=== PATIENT | female | born 1995 | race Caucasian/White ===

== ENCOUNTER 2019-07-03 11:41 | Emergency (ER) | payer OTHER ==
--- NOTE | 2019-07-03 12:07 | UC ---
FLU HPI - HPI Summary HPI Summary: 24 yo female presents with flu-like symptoms. She tells me that for the last 4 days she has had fatigue, body aches, intermittent feeling feverish, sore throat , and dry cough. For the last 2 days she has had bladder pressure, burning with urination, and urinary frequency. She has been taking tylenol for her flu symptoms with good relief. Has been taking AZO for her urinary symptoms with good relief. She did not get a flu shot this year. LMP was 06/21/19. Denies SOB, chest pain, abdominal pain, n/v/d/c, flank or back pain. Denies any PMHx. - History of Current Complaint Stated Complaint: SORE THROAT FEVER BODYACHES URINARY ISSUE Time Seen by Provider: 07/03/19 12:07 Hx Obtained From: Patient Severity Currently: Mild Severity Initially: Mild Pain Intensity: 3 Pain Scale Used: 0-10 Numeric - Allergy/Home Medications Allergies/Adverse Reactions: Allergies Allergy/AdvReac Type Severity Reaction Status Date / Time No Known Allergies Allergy Verified 07/03/19 12:09 Home Medications: Home Medications Ethinyl Estradiol/Drospirenone [[place] 28 Tablet (Nf)] 1 tab PO DAILY 07/03/19 [ History Confirmed 07/03/19] Nitrofurantoin Monohyd/M-Cryst [Macrobid 100 mg Capsule] 100 mg PO BID #10 cap 07/03/19 [Rx] PMH/Surg Hx/FS Hx/Imm Hx - Additional Past Medical History Additional PMH: None - Surgical History Surgical History: Yes Surgery Procedure, Year, and Place: parathyroid 2016 - Family History Known Family History: Positive: None - Social History Occupation: Student Lives: Dormitory/Roommates Alcohol Use: Occasionally Substance Use Type: None Smoking Status (MU): Never Smoked Tobacco Review of Systems All Other Systems Reviewed And Are Negative: No Constitutional: Positive: Chills, Fatigue, Other - Body aches Skin: Positive: Negative Eyes: Positive: Negative ENT: Positive: Sore Throat, Nasal Discharge Respiratory: Positive: Cough Cardiovascular: Positive: Negative Gastrointestinal: Positive: Negative Genitourinary: Positive: Dysuria Neurovascular: Positive: Negative Musculoskeletal: Positive: Negative Neurological/Mental Status: Positive: Negative Psychological: Positive: Negative Physical Exam - Summary Physical Exam Summary: GENERAL: NAD. WDWN. No pain distress. SKIN: No rashes, sores, or open wounds. HEENT: Head: AT/NC Eyes: PERRLA. EOM intact. Conjunctiva clear without inflammation or discharge. Ears: Hearing grossly normal. TMs intact, no bulging, erythema, or edema. Nose: Nasal mucosa pink and moist. NTTP maxillary and frontal sinus. Throat: Posterior oropharynx without exudates, erythema, or tonsillar enlargement. Uvula midline. NECK: Supple. Nontender. No lymphadenopathy. CHEST: CTAB. No r/r/w. No accessory muscle use. Breathing comfortably and in no distress. CV: RRR. Pulses intact. Brisk cap refill. ABDOMEN: Soft. NTTP. No distention or guarding. No CVA tenderness. Bowel sounds present NEURO: Alert. PSYCH: Age appropriate behavior. Triage Information Reviewed: Yes Vital Signs: Vital Signs: Temp Pulse Resp BP Pulse Ox 97.8 F 80 18 99/58 99 07/03/19 12:05 07/03/19 12:05 07/03/19 12:05 07/03/19 12:05 07/03/19 12:05 Laboratory Tests 07/03/19 07/03/19 07/03/19 12:20 12:22 12:25 POC Urine Color Yellow POC Urine Clarity Clear POC Urine pH 8.5 POC Ur Specif [place] 1.015 POC Urine Protein 1+ A POC Ur Glucose (UA) Trace A POC Urine Ketones Negative POC Urine Blood Trace-intact A POC Urine Nitrite Negative POC Urine Bilirubin Negative POC Urine Urobilinogen 1.0 POC U Leukocyte Esteras Trace A POC Ur Test Influenza A (Rapid) Negative Influenza B (Rapid) Negative Group A Strep Rapid Negative 07/03/19 12:27 POC Urine Color POC Urine Clarity POC Urine pH POC Ur Specif [place] POC Urine Protein POC Ur Glucose (UA) POC Urine Ketones POC Urine Blood POC Urine Nitrite POC Urine Bilirubin POC Urine Urobilinogen POC U Leukocyte Esteras POC Ur Test Negative Influenza A (Rapid) Influenza B (Rapid) Group A Strep Rapid Vital Signs Reviewed: Yes Flu Course/Dx - Course Course Of Treatment: UA as above - discussed with pt and she denies personal or fam hx of diabetes. Given trace glucose a fingerstick was checked as was 118 - she last ate about 2 hours ago (oatmeal). POC strep and flu negative. Suspect viral illness. Will treat her with macrobid for her UTI and have her continue her supportive OTC care for her flu-like symptoms. Recommend recheck in 7-10 days with [facility] for trace glucose in urine. - Differential Dx/Diagnosis Provider Diagnosis: Flu-like symptoms, UTI (urinary tract infection) Discharge ED - Sign-Out/Discharge Documenting (check all that apply): Patient Departure All imaging exams completed and their final reports reviewed: No Studies - Discharge Plan Condition: Stable Disposition: HOME Prescriptions: Nitrofurantoin Monohyd/M-Cryst [Macrobid 100 mg Capsule] 100 mg PO BID #10 cap Patient Education Materials: Urinary Tract Infection in Women (ED), Viral Syndrome (ED) Referrals: No Primary Care Phys,NOPCP [Primary Care Provider] - [facility] [Provider Group] - If Needed Additional Instructions: If you develop a fever, shortness of breath, chest pain, new or worsening symptoms - please call your PCP or go to the ED immediately. I recommend that you follow up with [facility] in 7-10 days when you are feeling better for a recheck of your urine - Billing Disposition and Condition Condition: STABLE Disposition: Home
[2019-07-03 12:09] VITALS: BP 99/58
[2019-07-03 12:34] LABS: Influenza A Molecular Negative (Negative); Influenza B Molecular Negative (Negative)
--- NOTE | 2019-07-04 15:46 | UC ---
- Progress Note Progress Note: Urine culture with no growth. If feeling better - finish anbx If not better - may stop anbx and needs f/u with [facility] as suggested at visit Course/Dx - Diagnoses Provider Diagnoses: Flu-like symptoms, UTI (urinary tract infection) Discharge ED - Sign-Out/Discharge Documenting (check all that apply): Post-Discharge Follow Up All imaging exams completed and their final reports reviewed: No Studies - Discharge Plan Condition: Stable Disposition: HOME Prescriptions: Nitrofurantoin Monohyd/M-Cryst [Macrobid 100 mg Capsule] 100 mg PO BID #10 cap Patient Education Materials: Urinary Tract Infection in Women (ED), Viral Syndrome (ED) [facility]] - If Needed No Primary Care Phys,NOPCP [Primary Care Provider] - Additional Instructions: If you develop a fever, shortness of breath, chest pain, new or worsening symptoms - please call your PCP or go to the ED immediately. I recommend that [facility]10 days when you are feeling better for a recheck of your urine - Billing Disposition and Condition Condition: STABLE Disposition: Home
== END 2019-07-03 12:48 | disposition home or self-care (01) ==
LOC: UCEAST 11:41
DX: N39.0 Urinary tract infection, site not specified (principal); R53.83 Other fatigue; R52 Pain, unspecified; R50.9 Fever, unspecified; J02.9 Acute pharyngitis, unspecified; R05 Cough; R09.89 Other specified symptoms and signs involving the circulatory and respiratory systems
CPT/HCPCS: 81003; 84702; 87086; 87651; 99212; G0463